=== PATIENT | male | born 1990 | race Caucasian/White ===

== ENCOUNTER 2021-06-15 03:59 | Emergency (ER) | payer SELFPAY ==
[2021-06-15 04:27] VITALS: BP 160/90; PULSE 78; TEMP 99.6; BMI 23.4
== END 2021-06-15 06:07 | disposition home or self-care (01) ==
LOC: JER 03:59
DX: R50.9 Fever, unspecified (principal); M79.10 Myalgia, unspecified site; Z20.822 Contact with and (suspected) exposure to COVID-19
CPT/HCPCS: 87804; 99283-25; C9803; U0003; U0005

== ENCOUNTER 2022-10-21 23:29 | Emergency (ER) | payer OTHER ==
[2022-10-21 23:36] VITALS: BP 151/84; PULSE 83; RESP 17; TEMP 98.1; BMI 24.8
[2022-10-21 23:54] LABS: HEMATOCRIT 47.6 % (35.4-49); HEMOGLOBIN 16.3 GM/dL (11.7-16.9); MCH 30.9 pg (25.7-33.7); MCHC 34.2 g/dl (32.0-35.9); MEAN CELL VOLUME 90.5 fl (80-96); MEAN PLT VOLUME 8.6 fl (7.5-11.1); PLATELET COUNT 222 10^3/uL (134-434); RBC 5.26 M/mm3 (4.00-5.60); RDW 12.9 % (11.9-15.9); WHITE BLOOD COUNT 5.3 K/mm3 (4.0-10.0)
[2022-10-22 00:15] LABS: ALBUMIN 4.6 g/dl (3.4-5.0); BLOOD UREA NITROGEN 10.6 mg/dL (7-18); CALCIUM 9.7 mg/dL (8.5-10.1)
[2022-10-22 00:19] LABS: BILIRUBIN,TOTAL 0.7 mg/dL (0.2-1); INR 1.15 (0.83-1.09); PROTHROMBIN TIME (PATIENT) 13.2 SEC (9.7-13.0); TOT PROT 7.8 g/dl (6.4-8.2)
[2022-10-22 00:22] LABS: ACTIVATED PTT 32.8 SECONDS (25.2-36.5)
== END 2022-10-22 01:48 | disposition home or self-care (01) ==
LOC: JERFT 23:29 → JER 23:29 → JERFT 10-22 01:48
DX: K58.9 Irritable bowel syndrome, unspecified (principal)
CPT/HCPCS: 36415; 74177-TC; 80053; 82150; 83690; 85027; 85610; 85730; 99285-25; Q9967